=== PATIENT | female | born 1965 | race Caucasian/White ===

== ENCOUNTER 2016-07-09 08:38 | Emergency (ER) | payer OTHER ==
[~2016-07-09] VITALS: Ht 170.2 cm; Wt 70.9 kg
[2016-07-09 08:44] VITALS: TEMP 36.9; Ht 170.2 cm; Wt 70.9 kg
--- NOTE | 2016-07-09 09:41 | EMERGENCY ROOM VISIT NOTE ---
History First contact with patient: 08:54 Chief Complaint: ED VAG BLEEDING Stated Complaint: VAGINAL BLEEDING,CRAMPING,PASSING CLOTS History of Present Illness The patient is a 50 year old female who presents to the Emergency Room with complaints of vaginal bleeding since April, but worsened in last 4 days with large clots and increased cramping. Change from twice daily pad change to 6-7 times daily. Soaked through Pain symptoms have improved since morning: she is experiencing cramping with some radiation in to the back without known trigger (not affected by food/ ambulation/bowel movement/eating). The pain gradually fades over an hour, but on onset, the severity causes patient to buckle over and just waits until it passes. Some relief provided by ibuprofen Also has some dizziness yesterday, some fatigue, no CP, no dyspnea, no exertional limitations No abnormal discharge, no vaginal pruritis, no pain on intercourse No UTI symptoms except frequency x 1 month No hematuria or hematochezia. No constipation or diarrhea Diagnosed with uterine polyps with endometrial thickness 16mm via vaginal U/S by Wavemaker Softwareger on 06/14/16 . Scheduled for polypectomy and D&C in August 2016. She was not prescribed any progesterone Lab work in May showed normal Hb Review of Systems See HPI for pertinent positives and negatives. A total of ten systems were reviewed and were otherwise negative. Past Medical/Surgical History Medical Problems: (1) No pertinent past medical history Social History Smoking Status: Never Smoker Current/Historical Medications Scheduled Norethindrone (Aygestin), 5 MG PO BID Allergies Coded Allergies: Ampicillin (Unverified Allergy, Intermediate, RASH, 07/09/16) Uncoded Allergies: AMPICILLIN (Allergy, Unknown, rash, 07/09/16) Physical Exam Vital Signs Date Time Temp Pulse Resp B/P Pulse Ox O2 Delivery O2 Flow Rate FiO2 07/09/16 12:03 59 16 123/74 98 Room Air 07/09/16 10:49 61 18 123/74 99 Room Air 07/09/16 08:44 36.9 81 20 116/65 99 Room Air Physical Exam GENERAL: alert, well appearing, thin, sitting in bed, no acute distress, non- toxic HEAD: Normocephalic, atraumatic. No sinus tenderness. EYES: PERRL, EOMI, normal conjunctiva OROPHARYNX: no exudate, no erythema, lips, buccal mucosa, and tongue normal and mucous membranes are moist NECK: supple, no nuchal rigidity, no adenopathy, non-tender LUNGS: Clear to auscultation. Normal chest wall mechanics, good air entry. No crepitations, crackles, or wheezes HEART: no murmurs, S1 normal and S2 normal CHEST: No reproducible tenderness. ABDOMEN: abdomen soft, mild lower quadrant tenderness, worse on left, normo- active bowel sounds, no masses, no rebound or guarding. BACK: Back is symmetrical on inspection, no deformities, no midline tenderness, no CVA tenderness. SKIN: Warm, pink, dry. No erythema, rashes, or bruising. EXTREMITIES: Grossly normal. Moving all 4 limbs, strength 5/5. No pitting edema. Calves non tender. NEURO: Alert, Ox3. No focal deficits. Normal sensorium, cranial nerves II-XII grossly intact, normal speech. PSYCH: Mood and affect appropriate. Medical Decision & Procedures Laboratory Results 07/09/16 10:25 Red Blood Count 4.25, Mean Corpuscular Volume 89.4, Mean Corpuscular Hemoglobin 30.1, Mean Corpuscular Hemoglobin Concent 33.7, Mean Platelet Volume 9.3, Neutrophils (%) (Auto) 71.7, Lymphocytes (%) (Auto) 19.6, Monocytes (%) (Auto) 4.9, Eosinophils (%) (Auto) 2.4, Basophils (%) (Auto) 1.2, Neutrophils # (Auto) 4.10, Lymphocytes # (Auto) 1.12, Monocytes # (Auto) 0.28, Eosinophils # (Auto) 0.14, Basophils # (Auto) 0.07 07/09/16 10:25 Test 07/09/16 00:00 07/09/16 10:25 Urine Color YELLOW Urine Appearance CLEAR (CLEAR) Urine pH 7.5 (4.5-7.5) Urine Specific [place] 1.007 (1.000-1.030) Urine Protein NEG (NEG) Urine Glucose (UA) NEG (NEG) Urine Ketones NEG (NEG) Urine Occult Blood 3+ (NEG) Urine Nitrite NEG (NEG) Urine Bilirubin NEG (NEG) Urine Urobilinogen NEG (NEG) Urine Leukocyte Esterase NEG (NEG) Urine WBC (Auto) 0 /hpf (0-5) Urine RBC (Auto) >30 /hpf (0-4) Urine Hyaline Casts (Auto) 0 /lpf (0-5) Urine Epithelial Cells (Auto) 5-10 /lpf (0-5) Urine Bacteria (Auto) NEG (NEG) White Blood Count 5.72 K/uL (4.8-10.8) Red Blood Count 4.25 M/uL (4.2-5.4) Hemoglobin 12.8 g/dL (12.0-16.0) Hematocrit 38.0 % (37-47) Mean Corpuscular Volume 89.4 fL (80-100) Mean Corpuscular Hemoglobin 30.1 pg (25-34) Mean Corpuscular Hemoglobin Concent 33.7 g/dl (32-36) Platelet Count 275 K/uL (130-400) Mean Platelet Volume 9.3 fL (7.4-10.4) Neutrophils (%) (Auto) 71.7 % Lymphocytes (%) (Auto) 19.6 % Monocytes (%) (Auto) 4.9 % Eosinophils (%) (Auto) 2.4 % Basophils (%) (Auto) 1.2 % Neutrophils # (Auto) 4.10 K/uL (1.4-6.5) Lymphocytes # (Auto) 1.12 K/uL (1.2-3.4) Monocytes # (Auto) 0.28 K/uL (0.11-0.59) Eosinophils # (Auto) 0.14 K/uL (0-0.5) Basophils # (Auto) 0.07 K/uL (0-0.2) RDW Standard Deviation 44.1 fL (36.4-46.3) RDW Coefficient of Variation 13.4 % (11.5-14.5) Immature Granulocyte % (Auto) 0.2 % Immature Granulocyte # (Auto) 0.01 K/uL (0.00-0.02) Prothrombin Time 10.6 SECONDS (9.0-12.0) Prothromb Time International Ratio 1.0 (0.9-1.1) Activated Partial Thromboplast Time 26.6 SECONDS (21.0-31.0) Partial Thromboplastin Ratio 1.0 Anion Gap 7.0 mmol/L (3-11) Est Creatinine Clear Calc Drug Dose 71.9 ml/min Estimated GFR () 84.7 Estimated GFR (Non- 73.1 BUN/Creatinine Ratio 19.6 (10-20) Calcium Level 8.6 mg/dl (8.5-10.1) Medications Administered Medications (Trade) Dose Ordered Sig/Smita Route Start Time Stop Time Status Last Admin Dose Admin Ketorolac Tromethamine (Toradol Inj) 30 mg NOW STAT IV 07/09/16 10:47 07/09/16 10:48 DC 07/09/16 10:54 30 MG Norethindrone Acetate (Aygestin Tab) 5 mg TODAY@1150 ONCE PO 07/09/16 11:50 07/09/16 11:51 DC 07/09/16 12:01 5 MG Medical Decision 50 year old female present with worsening vaginal bleeding Differential diagnoses includes but is not limited to uterine fibroids, uterine polyps, cervical polyps, miscarriage, ectopic , dysfunction uterine bleeding, bleeding dyscrasia, trauma, infection. Patient noted to be hemodynamically stable as per vitals Patient was given 30mg IV Toradol for symptom relief. Lab work was performed. CBC, BMP, coagulation profile were all within normal limits, with hemoglobin 12.8. Urinalysis showed no signs of infection although RBCs were present in sample. Patient's live truck operator Dr Hilario was contacted at 11:05 to discuss case. In view of lab findings and clinical picture, he recommended Aygestin 5mg BID x 5days with outpatient follow up. The first dose of Aygestin was given in hospital and a script sent to pharmacy. In addition, patient advised for conservative management with Tylenol or Motrin for pain relief and increased oral intake to improve hydration status. She was told to contact her gynecology office tomorrow to schedule an appointment within the week. Patient understands and agreeable with care plan. Patient discharged home well. Impression Primary Impression: Uterine polyp Departure Information Dispostion Home / Self-Care Condition GOOD Prescriptions Norethindrone (Aygestin) 5 Mg Tab 5 MG PO BID, #9 TAB Prov: Alka. Clemens MD 07/09/16 Referrals Alvaro Duarte M.D.(SAE) (PCP) Patient Instructions A Signature Page, My [facility]
[2016-07-09 10:36] LABS: BASO % 1.2 %; BASO ABS # 0.07 K/uL (0-0.2); COMPLETE YES; EOS % 2.4 %; IG% 0.2 %; LYMPH % 19.6 %; LYMPH ABS # 1.12 K/uL (1.2-3.4); MEAN CELL VOLUME 89.4 fL (80-100); MEAN CORPUSCULAR HEMOGLOBIN 30.1 pg (25-34); MEAN CORPUSCULAR HGB CONC 33.7 g/dl (32-36); MEAN PLATELET VOLUME 9.3 fL (7.4-10.4); MONO % 4.9 %; NEUT % 71.7 %; PLATELET COUNT 275 K/uL (130-400); RED BLOOD COUNT 4.25 M/uL (4.2-5.4); WHITE BLOOD COUNT 5.72 K/uL (4.8-10.8)
[2016-07-09] MEDS ORDERED: KETOROLAC TROMETHAMINE 30 MG/ML VIAL IV STA (10:47)
[2016-07-09 10:48] LABS: PROTHROMBIN TIME (PATIENT) 10.6 SECONDS (9.0-12.0)
[2016-07-09 10:55] LABS: BUN/CREATININE RATIO 19.6 (10-20); CALCIUM 8.6 mg/dl (8.5-10.1); CREATININE 0.92 mg/dl (0.60-1.20); POTASSIUM 4.2 mmol/L (3.5-5.1)
--- NOTE | 2016-07-09 11:12 | EMERGENCY ROOM VISIT NOTE ---
History Report prepared by Karan: Sheeba Castro Under the Supervision of: Dr. Justin Castorena D.O. First contact with patient: 08:54 Chief Complaint: ED VAG BLEEDING Stated Complaint: VAGINAL BLEEDING,CRAMPING,PASSING CLOTS History of Present Illness The patient is a 50 year old female who presents to the Emergency Room with complaints of persistent vaginal bleeding that worsened 4 days ago. The patient has also begun to experience clots in the vaginal bleeding. The patient is currently being worked up by OB-PROCESS DEVELOPMENT CHEMIST for endometrial polyps and endometrial thickening to 15 mm. She is scheduled to have a D&C and polypectomy in August. The patient has been experiencing menstrual bleeding since April but it has been manageable. Four days ago, the patient's menstrual bleeding increased along with increased abdominal cramping. The cramping is relieved with ibuprofen. Prior to 4 days ago, the patient was using 2 pads but over the last 4 days she has been using 6-7. The patient is also experiencing intermittent sharp abdominal pain that starts in her left groin then radiates into her back. The pain subsides gradually over 30 minutes. Additionally, the patient experienced some dizziness yesterday along with fatigue. She is also experiencing increased urinary frequency but she denies chest pain, dyspnea, hematuria, hematochezia, constipation, and diarrhea. Source of History: patient Onset: 4 days ago Position: other (vagina) Quality: other (vaginal bleeding) Timing: worsening, other (persistent) Associated Symptoms: + abdominal pain (sharp, gradually resolves in 30 minutes), + fatigue, + urinary symptoms (increased frequency), No SOB (dyspnea) , No chest pain, No diarrhea, No hematochezia Note: dizziness, abdominal cramping, no hematuria, no constipation Review of Systems See HPI for pertinent positives & negatives. A total of 10 systems reviewed and were otherwise negative. Past Medical & Surgical Medical Problems: (1) No pertinent past medical history Family History No pertinent family history Social History Smoking Status: Never Smoker Marital Status: Housing Status: lives with family Current/Historical Medications Scheduled Norethindrone (Aygestin), 5 MG PO BID Allergies Coded Allergies: Ampicillin (Unverified Allergy, Intermediate, RASH, 07/09/16) Uncoded Allergies: AMPICILLIN (Allergy, Unknown, rash, 07/09/16) Physical Exam Vital Signs Date Time Temp Pulse Resp B/P Pulse Ox O2 Delivery O2 Flow Rate FiO2 07/09/16 12:03 59 16 123/74 98 Room Air 07/09/16 10:49 61 18 123/74 99 Room Air 07/09/16 08:44 36.9 81 20 116/65 99 Room Air Physical Exam CONSTITUTIONAL/VITAL SIGNS: Reviewed / noted above. GENERAL: Non-toxic in appearance. INTEGUMENTARY: Warm, dry, and [place]. HEAD: Normocephalic. EYES: without scleral icterus or trauma. ENT/OROPHARYNX: clear and moist. LYMPHADENOPATHY/NECK: Is supple without lymphadenopathy or meningismus. RESPIRATORY: Lungs clear and equal. CARDIOVASCULAR: Regular rate and rhythm. GI/ABDOMEN: Soft and nontender. No organomegaly or pulsatile mass. No rebound or guarding. Normal bowel sounds. EXTREMITIES: Warm and well perfused. BACK: No CVA tenderness. NEUROLOGICAL: Intact without focal deficits. PSYCHIATRIC: normal affect. MUSCULOSKELETAL: Normally developed with good muscle tone. Medical Decision & Procedures Laboratory Results 07/09/16 10:25 Red Blood Count 4.25, Mean Corpuscular Volume 89.4, Mean Corpuscular Hemoglobin 30.1, Mean Corpuscular Hemoglobin Concent 33.7, Mean Platelet Volume 9.3, Neutrophils (%) (Auto) 71.7, Lymphocytes (%) (Auto) 19.6, Monocytes (%) (Auto) 4.9, Eosinophils (%) (Auto) 2.4, Basophils (%) (Auto) 1.2, Neutrophils # (Auto) 4.10, Lymphocytes # (Auto) 1.12, Monocytes # (Auto) 0.28, Eosinophils # (Auto) 0.14, Basophils # (Auto) 0.07 07/09/16 10:25 Test 07/09/16 00:00 07/09/16 10:25 White Blood Count 5.72 K/uL (4.8-10.8) Red Blood Count 4.25 M/uL (4.2-5.4) Hemoglobin 12.8 g/dL (12.0-16.0) Hematocrit 38.0 % (37-47) Mean Corpuscular Volume 89.4 fL (80-100) Mean Corpuscular Hemoglobin 30.1 pg (25-34) Mean Corpuscular Hemoglobin Concent 33.7 g/dl (32-36) Platelet Count 275 K/uL (130-400) Mean Platelet Volume 9.3 fL (7.4-10.4) Neutrophils (%) (Auto) 71.7 % Lymphocytes (%) (Auto) 19.6 % Monocytes (%) (Auto) 4.9 % Eosinophils (%) (Auto) 2.4 % Basophils (%) (Auto) 1.2 % Neutrophils # (Auto) 4.10 K/uL (1.4-6.5) Lymphocytes # (Auto) 1.12 K/uL (1.2-3.4) Monocytes # (Auto) 0.28 K/uL (0.11-0.59) Eosinophils # (Auto) 0.14 K/uL (0-0.5) Basophils # (Auto) 0.07 K/uL (0-0.2) RDW Standard Deviation 44.1 fL (36.4-46.3) RDW Coefficient of Variation 13.4 % (11.5-14.5) Immature Granulocyte % (Auto) 0.2 % Immature Granulocyte # (Auto) 0.01 K/uL (0.00-0.02) Prothrombin Time 10.6 SECONDS (9.0-12.0) Prothromb Time International Ratio 1.0 (0.9-1.1) Activated Partial Thromboplast Time 26.6 SECONDS (21.0-31.0) Partial Thromboplastin Ratio 1.0 Anion Gap 7.0 mmol/L (3-11) Est Creatinine Clear Calc Drug Dose 71.9 ml/min Estimated GFR () 84.7 Estimated GFR (Non- 73.1 BUN/Creatinine Ratio 19.6 (10-20) Calcium Level 8.6 mg/dl (8.5-10.1) Laboratory results as stated above per my review. Medications Administered Medications (Trade) Dose Ordered Sig/Smita Route Start Time Stop Time Status Last Admin Dose Admin Ketorolac Tromethamine (Toradol Inj) 30 mg NOW STAT IV 07/09/16 10:47 07/09/16 10:48 DC 07/09/16 10:54 30 MG Norethindrone Acetate (Aygestin Tab) 5 mg TODAY@1150 ONCE PO 07/09/16 11:50 07/09/16 11:51 DC 07/09/16 12:01 5 MG ED Course 0900: The medical corps officer evaluated the patient at this time. We discussed her findings and potential treatment plans. 1043: Previous medical records were reviewed. The patient was evaluated in room B7. A complete history and physical examination was performed. 1116: The resident discussed the patient's case with Dr. Portillo - OB-PROCESS DEVELOPMENT CHEMIST. 1125: On the resident's reevaluation, the patient is doing well. She discussed the results and findings with the patient. The patient verbalized agreement of the treatment plan. The patient was discharged home. Medical Decision Differential includes ectopic , dysfunction uterine bleeding, bleeding dyscrasia, trauma, infection. This is a 50-year-old female who presents to the ED with a chief complaint of vaginal bleeding. She has been having vaginal bleeding for months. She is scheduled for endometrial polyp removal in August. The patient has a history of endometrial polyps and has had this in the past. The patient reports over the past 4 days she has had increasing cramps and bleeding and clots. She denies any lightheadedness or dizziness. No chest pains or shortness of breath. No Urinary symptoms. The patient's physical exam revealed no abdominal tenderness. She was seen in conjunction with the resident. Please see the note for additional information. Patient's blood work including a CBC and PRP were unremarkable. The patient was told results the test. The resident spoke with the patient's software development analyst. The patient is felt to be stable for discharge and outpatient follow-up. Impression Primary Impression: Dysfunctional uterine bleeding Scribe Attestation The scribe's documentation has been prepared under my direction and personally reviewed by me in its entirety. I confirm that the note above accurately reflects all work, treatment, procedures, and medical decision making performed by me. Departure Information Dispostion Home / Self-Care Prescriptions Norethindrone (Aygestin) 5 Mg Tab 5 MG PO BID, #9 TAB Prov: Alka. Clemens MD 07/09/16 Referrals Alvaro Duarte M.D.(SAE) (PCP) Forms HOME CARE DOCUMENTATION FORM, IMPORTANT VISIT INFORMATION, WORK / SCHOOL INSTRUCTIONS Patient Instructions A Signature Page, My [facility] Additional Instructions You were seen in the ED today for vaginal bleeding. Your vitals were hemodynamically stable and your blood work showed a hemoglobin of 12.8, normal kidney function and no problems with blood coagulation. In view of your ongoing bleeding, your software development analyst recommends 5mg of Aygestin twice daily for 5 days. This should reduce your bleeding. For pain mamagement, you can take over the counter regular strength (200 mg/tab ) Advil (ibuprofen) 1-2 tabs every 4-6 hours as needed. Do not exceed a dose of 3200 mg per day. Please call your software development analyst's office tomorrow to make an appointment within a weeks time. You have been examined and treated today on an emergency basis only. This is not a substitute for, or an effort to provide, complete comprehensive medical care. It is impossible to recognize and treat all injuries or illnesses in a single emergency department visit. It is therefore important that you make a follow up with your physician for close monitoring. Return for worsening symptoms or if you develop fever, vomiting, or any other concerning symptoms such as chest pain, shortness of breath even at rest, significant blood loss soaking through more than one pad an hour despite medication usage.
[2016-07-09] MEDS ORDERED: NORETHINDRONE ACETATE 5 MG TAB PO ONE ×2 (11:30→11:50)
[2016-07-09] MEDS ORDERED: NORE5TAB5 PO (11:34)
[2016-07-09 12:03] VITALS: BP 123/74; PULSE 59; O2SAT 98
[2016-07-09 12:19] LABS: URINE APPEARANCE CLEAR (CLEAR); URINE BILIRUBIN NEG (NEG); URINE COLOR YELLOW; URINE NITRITE NEG (NEG); URINE PH 7.5 (4.5-7.5); URINE SPECIFIC GRAVITY 1.007 (1.000-1.030); UROBILINOGEN NEG (NEG)
[2016-07-09 12:35] LABS: MANUAL MICROSCOPIC REQUIRED? NO; REVIEW REQ? NO
[2016-10-24] MEDS ORDERED: CETI10TA99 PO (08:24)
[2016-10-24] MEDS ORDERED: CHOL400C7 PO (08:24)
== END 2016-07-09 12:05 | disposition home or self-care (01) ==
LOC: C.EDB 08:41
DX: N84.0 Polyp of corpus uteri (principal); N93.8 Other specified abnormal uterine and vaginal bleeding; Z79.3 Long term (current) use of hormonal contraceptives; R10.9 Unspecified abdominal pain; R53.83 Other fatigue; R35.0 Frequency of micturition

== ENCOUNTER → 2016-10-19 | Outpatient (CLI) | payer OTHER ==
[~2016-10-19] MED LIST: CETI10TA99 PO; CHOL400C7 PO; NORE5TAB5 PO
== END | disposition home or self-care (01) ==
LOC: C.PAPS 08:20
PROVIDERS: ATTEND Obstetrics & Gynecology
DX: Z12.4 Encounter for screening for malignant neoplasm of cervix (principal); Z87.42 Personal history of other diseases of the female genital tract

== ENCOUNTER → 2016-10-19 | Outpatient (CLI) | payer OTHER ==
[2016-10-19 15:09] LABS: BASO % 0.6 %; BASO ABS # 0.06 K/uL (0-0.2); COMPLETE YES; EOS % 2.1 %; IG% 0.2 %; LYMPH ABS # 1.53 K/uL (1.2-3.4); MEAN CELL VOLUME 89.6 fL (80-100); MEAN CORPUSCULAR HEMOGLOBIN 30.4 pg (25-34); MEAN CORPUSCULAR HGB CONC 33.9 g/dl (32-36); MEAN PLATELET VOLUME 9.8 fL (7.4-10.4); MONO % 7.4 %; NEUT % 73.7 %; PLATELET COUNT 306 K/uL (130-400); RED BLOOD COUNT 4.24 M/uL (4.2-5.4); WHITE BLOOD COUNT 9.55 K/uL (4.8-10.8)
== END | disposition home or self-care (01) ==
LOC: C.LAB1850 14:25
PROVIDERS: ATTEND Obstetrics & Gynecology
DX: Z01.812 Encounter for preprocedural laboratory examination (principal)

== ENCOUNTER → 2016-11-05 | Day surgery (SDC) | payer OTHER ==
[2016-10-24 08:24] VITALS: Ht 170.2 cm; Wt 68.2 kg
--- NOTE | 2016-10-27 11:09 | HISTORY & PHYSICAL EXAMINATION ---
DATE OF ADMISSION: 11/05/2016 CHIEF COMPLAINT: Endometrial polyps and abnormal bleeding. HISTORY OF PRESENT ILLNESS: The patient is a 51-year-old white female 3, para 3 who has been experiencing abnormal bleeding over the past 6 months. She was being seen by the assistant infant teacher at [facility] and was to undergo surgery for removal of endometrial polyps, but the assistant infant teacher was unable to dilate the cervix and enter the endometrial cavity. The patient was seen in the Emergency Room in July of this year due to heavy bleeding and was treated with progestin. She has had some more normal episodes of bleeding since that time. She had also undergone an ultrasound which showed a thickened endometrial lining. Hysterosonogram was performed which showed evidence of 3 polypoid masses within her endometrial cavity. The patient has a history of abnormal Pap smear in 1988 and she underwent laser treatment. Since that time she has had 3 vaginal deliveries. She reports that her paternal grandmother did have uterine cancer. ALLERGIES: THE PATIENT REPORTS ALLERGIES TO AMPICILLIN AND SULFA. MEDICATIONS: She takes Zyrtec 10 mg daily for allergies. PAST SURGICAL HISTORY: She has a history of laser ablation of the cervix. She has also undergone left breast lumpectomy, in addition tooth extraction. Hemorrhoidectomy. ILLNESSES: Abnormal uterine bleeding as above. PAST MEDICAL HISTORY: Abnormal Pap also as above. History of breast lump. She has had varicella in the past. FAMILY HISTORY: Her father has hypertension. She also has children with hypertension. Her daughter has Moyamoya disease. She has a son who also has Moyamoya syndrome and lupus. Her paternal grandmother had cancer of the uterus. SOCIAL HISTORY: The patient is . She denies smoking cigarettes, also denies drinking alcohol. PHYSICAL EXAMINATION: VITAL SIGNS: Height 5 foot 7 inches, weight 151 pounds, blood pressure 110/80. HEAD, EYES, EARS, NOSE, AND THROAT: Grossly within normal limits. NECK: Supple without masses. CHEST: Her lungs are clear without wheezing. HEART: Regular rate and rhythm. No murmurs, gallops or rubs. BREASTS: Nontender with no masses palpable. ABDOMEN: Soft and nontender with no masses. PELVIC: External genitalia normal. Vagina pink and stimulated. Cervix pink and closed with no lesions visible. Uterus is anterior and within normal limits size. Adnexa nontender with no masses palpable. Rectovaginal exam negative. EXTREMITIES: No cyanosis, clubbing or edema. IMPRESSION: A 51-year-old white female with history of abnormal uterine bleeding and endometrial masses. PLAN: The patient is for hysteroscopy, dilation of the cervix and curettage with possible removal of polyp/lesion. The patient is aware of the risks of infection, bleeding, perforation of the uterus which could require additional surgery or treatment, hospitalization, risk of anesthesia. The patient is aware that there is a possibility that the surgery will not be able to be performed once again if it is not possible to dilate the cervix and insert the hysteroscope. ZEKE
[~2016-11-05] VITALS: Ht 170.2 cm; Wt 68.2 kg
[~2016-11-05] MED LIST changes: +ATROPINE SULFATE 0.1 MG/ML 5ML SYR IV PRN; +DEXAMETHASONE SOD INJ 4 MG/ML VIAL ONE; +EpHEDrine SULFATE INJ 50 MG/ML AMP IV PRN; +FENTANYL CITRATE INJ 50 MCG/1 ML 2 ML VIAL IV PRN; +FENTANYL CITRATE INJ 50 MCG/1 ML 2 ML VIAL ONE; +IBUPROFEN 200 MG TAB ONE; +IBUPROFEN 600 MG TAB PO PRN; +KETOROLAC TROMETHAMINE 30 MG/ML VIAL ONE; +LACTATED RINGER'S 1000ML 1,000 ML IV SCH; +LIDOCAINE HCL 2% 2 ML VIAL (20MG/ML) ONE; +MIDAZOLAM HCL 1 MG/ML 2ML VIAL ONE; -NORE5TAB5 PO; +ONDANSETRON INJ 2 MG/ML 2 ML VIAL ONE; +PROPOFOL IV EMULSION 10 MG/ML 20 ML VIAL IV ONE; +SODIUM CHLORIDE 0.9% 1000ML 1,000 ML IV SCH
--- NOTE | 2016-11-05 08:03 | History & Physical Bridge - SC ---
H&P Re-Evaluation Bridge Note: I have examined the patient, reviewed the History & Physical and in the interval since the performance of the History & Physical I have noted the following changes of clinical significance: No changes noted
--- NOTE | 2016-11-05 08:42 | [facility] Post Operative Brief Note ---
Immediate Operative Summary Operative Date November 05, 2016. Pre-Operative Diagnosis Abnormal Uterine Bleeding, Uterine Mass Post-Operative Diagnosis Same Procedure(s) Performed Dilatation And Curettage, Hysteroscopy Surgeon Dr. Eric Good Humor Vendor Surgeon(s) None Estimated Blood Loss 25 ml Findings See dictated note. Specimens A.) Endometrial Curettings B.) Endocervical Curettings Complication(s) None Disposition Recovery Room / PACU
--- NOTE | 2016-11-05 08:51 | Discharge Instructions-SurgCtr ---
Discharge Instructions Date of Service November 05, 2016. Visit Reason for Visit: Abnormal Uterine Bleeding, Endometrial Mass Discharge Discharge Diagnosis / Problem: S/P Hysteroscopy, dilation and curettage of the uterus Discharge Goals Goal(s): Diagnostic testing, Therapeutic intervention Activity Recommendations Activity Limitations: per Instructions/Follow-up section Anesthesia . Post Anesthesia Instructions: If you have had General Anesthesia or IV Sedation: * Do not drive today. * Resume driving when surgeon permits. * Do not make important decisions or sign legal documents today. * Call surgeon for: 1. Temperature elevations greater than 101 degrees F. 2. Uncontrollable pain. 3. Excessive bleeding. 4. Persistent nausea and vomiting. 5. Medication intolerance (nausea, vomiting or rash). * For nausea and vomiting use only clear liquids such as: tea, soda, bouillon until nausea subsides, then gradually increase diet as tolerated. * If you have any concerns or questions, call your surgeon's office. If physician is unavailable and it is an emergency, call 911 or go to the nearest emergency room. . Instructions / Follow-Up Instructions / Follow-Up ACTIVITY RECOMMENDATIONS: * Avoid tampons, douching, hot tubs, pools, and intercourse until bleeding has stopped. * May shower as usual. * No strenuous activity for 24-48 hours. After 24-48 hours, you may do anything you feel like doing (driving and sports are okay). SPECIAL CARE INSTRUCTIONS: Special Diet: * Mild nausea may occur in the immediate post-operative period. * Take clear liquids such as tea, cola or bouillon until all nausea has subsided; you may then resume your normal diet. Special Care: * Light bleeding and vaginal spotting can last from a few days to 3-4 weeks. Call your doctor if bleeding becomes heavier than the heaviest part of your period. Call if you have heavy bleeding or persistent severe cramping. * Check your temperature twice a day for one week. If it goes above 100.4 degrees Fahrenheit (38.0 Celsius), notify your doctor. * Call your doctor's office at [phone] for an appointment for 2-4 weeks after your surgery. FOLLOW-UP VISIT: Call your doctor's office for an appointment for 2-4 weeks after your surgery. Diet Recommendations Home Diet: resume previous diet Procedures Procedures Performed: Dilatation And Curettage, Hysteroscopy Pending Studies Studies pending at discharge: yes List of pending studies: We will call you with the pathology report in about one week. Medical Emergencies . Who to Call and When: Medical Emergencies: If at any time you feel your situation is an emergency, please call 911 immediately. . Non-Emergent Contact Non-Emergency issues call your: Area Field Person Call Non-Emergent contact if: temperature is above 100.5, your pain is not controlled . . "Provider Documentation" section prepared by [employer]. .
--- NOTE | 2016-11-05 09:02 | OPERATIVE REPORT ---
DATE OF OPERATION: 11/05/2016 PREOPERATIVE DIAGNOSIS: Abnormal uterine bleeding and uterine mass. POSTOPERATIVE DIAGNOSIS: Same. PROCEDURE: Hysteroscopy, dilation and curettage. SURGEON: Dr. Bibi Eric. ANESTHESIA: General. VIDEO GAME PROGRAMMER: Dr. Alfonso. PROCEDURE IN DETAIL: The patient was taken to the operating room where general anesthesia was administered. After an adequate level was obtained, she was placed in dorsal lithotomy position. Vulva, vagina and cervix were prepped with Betadine solution. The patient was draped. Weighted speculum was placed in the posterior fornix of the vagina. Anterior lip of the cervix was grasped with an Allis clamp. The uterus was sounded to 8 cm. Endocervical curettings were obtained and these were scant. The cervix was then dilated enough to insert the small hysteroscope. This was done without difficulty. The endometrial cavity was visualized and there was a polypoid mass extending from the anterior portion of the fundus. In the process of dilation and inserting the hysteroscope, there were some additional pieces of tissue that were noted in the saline drainage from the uterus. The endometrial cavity was then curetted with a small smooth curette, followed by a medium size smooth sharp curette. Finally, the serrated curette was used. Hysteroscope was inserted into the uterine cavity again and the cavity now noted to be empty. Photos were taken. Blood loss was 25 mL. The procedure was ended at this point. The bits of tissue in the saline drainage were collected and send with the endometrial curettings. The patient was taken to the recovery room in good condition. I attest to the content of the Intraoperative Record and any orders documented therein. Any exceptions are noted below. ZEKE
--- NOTE | 2016-11-05 09:50 | Anesthesia Progress Nt - [facility] ---
Anesthesia Post Op Note Date & Time November 05, 2016 at 09:50 Vital Signs Pain Intensity: 3 Vital Signs Past 12 Hours Date Time Temp Pulse Resp B/P Pulse Ox O2 Delivery O2 Flow Rate FiO2 11/05/16 09:29 36.8 52 16 114/72 99 Room Air 11/05/16 09:17 36.6 11/05/16 09:15 102/68 11/05/16 09:14 52 9 97 11/05/16 09:14 52 9 11/05/16 09:10 106/70 11/05/16 09:09 59 15 11/05/16 09:09 57 15 96 11/05/16 09:05 109/68 11/05/16 09:04 56 13 11/05/16 09:04 54 13 98 11/05/16 09:00 Room Air 11/05/16 09:00 114/65 11/05/16 08:59 54 11 11/05/16 08:59 54 11 98 11/05/16 08:55 116/64 11/05/16 08:54 71 13 99 11/05/16 08:54 70 13 11/05/16 08:50 110/68 11/05/16 08:49 60 7 11/05/16 08:49 61 7 99 11/05/16 08:48 120/55 11/05/16 08:44 36.2 62 12 120/55 98 Diffusion Mask 5 11/05/16 07:07 36.7 58 16 118/65 98 Room Air Notes Mental Status: alert / awake / arousable, participated in evaluation Pt Amnestic to Procedure: Yes Nausea / Vomiting: adequately controlled Pain: adequately controlled Airway Patency, RR, SpO2: stable & adequate BP & HR: stable & adequate Hydration State: stable & adequate Anesthetic Complications: no major complications apparent
[2016-11-05 10:00] VITALS: BP 106/68; PULSE 47; TEMP 36.6; O2SAT 100
== END | disposition home or self-care (01) ==
LOC: X.SURG 06:55
PROVIDERS: ATTEND Obstetrics & Gynecology
DX: N84.0 Polyp of corpus uteri (principal)

== ENCOUNTER → 2017-10-21 | Outpatient (CLI) | payer OTHER ==
[~2017-10-21] MED LIST changes: -ATROPINE SULFATE 0.1 MG/ML 5ML SYR IV PRN; -DEXAMETHASONE SOD INJ 4 MG/ML VIAL ONE; -EpHEDrine SULFATE INJ 50 MG/ML AMP IV PRN; -FENTANYL CITRATE INJ 50 MCG/1 ML 2 ML VIAL IV PRN; -FENTANYL CITRATE INJ 50 MCG/1 ML 2 ML VIAL ONE; -IBUPROFEN 200 MG TAB ONE; -IBUPROFEN 600 MG TAB PO PRN; -KETOROLAC TROMETHAMINE 30 MG/ML VIAL ONE; -LACTATED RINGER'S 1000ML 1,000 ML IV SCH; -LIDOCAINE HCL 2% 2 ML VIAL (20MG/ML) ONE; -MIDAZOLAM HCL 1 MG/ML 2ML VIAL ONE; -ONDANSETRON INJ 2 MG/ML 2 ML VIAL ONE; -PROPOFOL IV EMULSION 10 MG/ML 20 ML VIAL IV ONE; -SODIUM CHLORIDE 0.9% 1000ML 1,000 ML IV SCH
== END | disposition home or self-care (01) ==
LOC: C.PAPS 11:18
PROVIDERS: ATTEND Obstetrics & Gynecology
DX: Z12.4 Encounter for screening for malignant neoplasm of cervix (principal)